=== PATIENT | female | born 1965 | race Caucasian/White ===

== ENCOUNTER 2023-12-29 04:08 | Day surgery (SDC) | payer BC ==
[2023-12-24 15:07] VITALS: BMI 43.7
[2023-12-29] MEDS ORDERED: PROPOFOL 20 ML ONE (13:05)
[2023-12-29] MEDS ORDERED: LIDOCAINE HCL/PF 2% SDV 5ML VIAL ONE (13:05)
[2023-12-29] MEDS ORDERED: MIDAZOLAM HCL 2 MG/2 ML SINGLE DOSE VIAL ONE (13:05)
[2023-12-29] MEDS ORDERED: oxyCODONE HCL 5 MG TABLET PO PRN (13:14)
[2023-12-29] MEDS ORDERED: IBUPROFEN 400 MG TABLET (FP) PO PRN (13:14)
[2023-12-29] MEDS ORDERED: ACETAMINOPHEN 325 MG TABLET (FP) PO PRN (13:14)
[2023-12-29] MEDS ORDERED: ONDANSETRON 4 MG/2 ML VIAL IVPUSH PRN ×2 (13:15→15:09)
[2023-12-29] MEDS ORDERED: ePHEDrine SULFATE 50 MG/1 ML AMPULE ONE (14:31)
[2023-12-29] MEDS: SILVER NITRATE 75% APPLIC STCK 1 PKT EACH TP ONE (14:48)
[2023-12-29] MEDS ORDERED: LACTATED RINGERS SOLUTION 1,000 ML IV SCH (15:15)
[2023-12-29 16:32] VITALS: BP 119/64; PULSE 65; RESP 17; TEMP 97.1
== END 2023-12-29 17:38 | disposition home or self-care (01) ==
LOC: JASU-SURG 04:08
PROVIDERS: ATTEND Obstetrics & Gynecology
PROC: 0UBG8ZX Excision of Vagina, Via Natural or Artificial Opening Endoscopic, Diagnostic (ICD-10-PCS; 2023-12-29)
PROC: 0UDB8ZZ Extraction of Endometrium, Via Natural or Artificial Opening Endoscopic (ICD-10-PCS; principal; 2023-12-29 10:00)
DX: N84.0 Polyp of corpus uteri (principal); N84.1 Polyp of cervix uteri
CPT/HCPCS: 86850; 86900; 86901; 88305-TC; 94760